=== PATIENT | female | born 1965 | race Hispanic/Latino ===

== ENCOUNTER 2022-10-19 21:37 | Emergency (ER) | payer OTHER ==
[2022-10-19 22:13] LABS: BASO # 0.1 10^3/uL (0.0-0.2); BASO % 0.6 % (0.0-1.0); EOS # 0.2 10^3/uL (0.0-0.5); EOS % 1.3 % (0.0-3.0); HEMATOCRIT 39.1 % (36.0-47.0); HEMOGLOBIN 13.1 g/dl (12.0-15.5); LYMPH # 5.1 10^3/uL (1.5-5.0); LYMPH % 33.8 % (24.0-44.0); MEAN CORPUSCULAR HEMOGLOBIN 29.5 pg (27.0-33.0); MEAN CORPUSCULAR HGB CONC 33.5 g/dl (32.0-36.5); MEAN CORPUSCULAR VOLUME 88.1 fl (80.0-96.0); MONO # 0.9 10^3/uL (0.0-0.8); MONO % 6.1 % (2.0-8.0); NEUTROPHILS # 8.7 10^3/uL (1.5-8.5); NEUTROPHILS % 57.7 % (36.0-66.0); PLATELET COUNT, AUTOMATED 274 10^3/uL (150-450); RED BLOOD COUNT 4.44 10^6/uL (4.00-5.40); WHITE BLOOD COUNT 15.1 10^3/uL (4.0-10.0)
[2022-10-19 22:36] LABS: BLOOD UREA NITROGEN 20 MG/DL (9-23); CALCIUM LEVEL 9.2 MG/DL (8.5-10.1); CARBON DIOXIDE LEVEL 26 MMOL/L (20-31); CHLORIDE LEVEL 105 MMOL/L (98-107); CREATININE FOR GFR 0.98 MG/DL (0.55-1.30); GLOMERULAR FILTRATION RATE > 60.0 (>51); GLUCOSE, FASTING 139 MG/DL (60-100); POTASSIUM SERUM 4.2 MMOL/L (3.5-5.1); SODIUM LEVEL 137 MMOL/L (136-145)
[2022-10-19] MEDS ORDERED: MECLIZINE 25 MG TABLET PO ONE (22:55)
[2022-10-19] MEDS ORDERED: ONDANSETRON 4MG 2ML VIAL IV ONE (22:55)
[2022-10-19 23:00] LABS: RSV AMPLIFICATION NEGATIVE (NEGATIVE)
[2022-10-19] MEDS: MORPHINE 4 MG/ML 1ML VIAL IV PRN ×2 (23:09→23:40)
[2022-10-19] MEDS ORDERED: OXYCODONE/APAP 5MG/325MG(HOME DOSE PACK) PO ONE (23:35)
[2022-10-19 23:40] VITALS: BP 167/88; TEMP 98.7; O2SAT 97
== END 2022-10-19 23:42 | disposition home or self-care (01) ==
LOC: M ED 21:37 → EDBD 21:37 → M ED 23:42
DX: S06.0X0A Concussion without loss of consciousness, initial encounter (principal); S01.01XA Laceration without foreign body of scalp, initial encounter; W17.89XA Other fall from one level to another, initial encounter; Y99.0 Civilian activity done for income or pay; J45.909 Unspecified asthma, uncomplicated
CPT/HCPCS: 12002; 70450; 72125; 80048; 85025; 87631; 96374; 96375; 96376; 99284; J2405